=== PATIENT | male | born 1950 | race Caucasian/White ===

== ENCOUNTER 2017-12-20 04:46 | Day surgery (SDC) | payer MEDICARE ==
[2017-12-20] MEDS ORDERED: LACTATED RINGERS 1,000 ML ONE (06:49)
[2017-12-20] MEDS ORDERED: LACTATED RINGERS 1,000 ML BAG IV ONE (07:10)
[2017-12-20] MEDS ORDERED: MIDAZOLAM INJ 2 MG/2 ML VIAL ONE (08:06)
--- NOTE | 2017-12-20 09:27 | OP ---
DATE OF PROCEDURE: 12/20/17 PREOPERATIVE DIAGNOSIS: 1. Family history of colon cancer in his father. 2. Personal history of colonic polyps with last colonoscopy in 2012. POSTOPERATIVE DIAGNOSIS: 1. Descending colon polyp. 2. Sigmoid diverticulosis. 3. Internal hemorrhoids. PROCEDURE: 1. Colonoscopy plus polypectomy. SURGEON: Tk Markham MD. COMPLICATIONS: None apparent. BLOOD LOSS: None. MEDICATIONS: Monitored anesthesia care. DESCRIPTION OF PROCEDURE: Informed consent was obtained prior to sedation. The preprocedure cardiopulmonary assessment was satisfactory. The patient was placed in the left lateral decubitus position and was sedated. A digital rectal exam reveals no rectal masses. The prostate is appropriate size for a gentleman his age. No masses or lesions on the prostate were palpated. The tip of the Olympus colonoscope was inserted in the rectum and guided over to the cecum. The cecum was identified by locating the ileocecal valve and appendiceal orifice. There was fluid in the right colon, but I suctioned it away to allow for good visualization. I do believe I was able to get satisfactory visualization of the colon to get a good exam. The mucosa of the cecum, ascending colon, hepatic flexure, transverse colon, splenic flexure, descending colon and sigmoid colon was closely examined. Direct and retroflexed views of the rectum were obtained. The patient had a 2 mm descending colon polyp that appeared either like a serrated adenoma or hyperplastic polyp. This was removed with a cold snare and recovered. The patient has some scattered sigmoid diverticulosis. The patient has grade 1 internal hemorrhoids. Otherwise, the colonoscopy was unremarkable. RECOMMENDATIONS: 1. Followup polyp pathology. 2. Because of his family history of colon cancer in his father, he needs a followup colonoscopy in 5 years. #[id number] cc: Stephan Lebron MD [facility]
[2017-12-20 09:53] VITALS: BP 128/72; TEMP 97.4; O2SAT 95
[2017-12-20] MEDS ORDERED: LIDOCAINE 1% 10 ML VIAL INJ ONE (10:00)
[2017-12-20] MEDS ORDERED: PROPOFOL 200 MG/20 ML VIAL IV ONE (10:00)
== END 2017-12-20 09:40 | disposition home or self-care (01) ==
LOC: AMB 04:46
PROVIDERS: ATTEND Internal Medicine Gastroenterology
DX: Z12.11 Encounter for screening for malignant neoplasm of colon (principal); D12.4 Benign neoplasm of descending colon; K57.30 Diverticulosis of large intestine without perforation or abscess without bleeding; K64.8 Other hemorrhoids; E66.9 Obesity, unspecified; F17.210 Nicotine dependence, cigarettes, uncomplicated; Z80.0 Family history of malignant neoplasm of digestive organs; Z68.31 Body mass index [BMI] 31.0-31.9, adult; Z86.010 Personal history of colon polyps; Z79.82 Long term (current) use of aspirin; Z79.899 Other long term (current) drug therapy
CPT/HCPCS: 00812; 45385; 88305; J2250; J3490; J7120